=== PATIENT | female | born 1950 | race Caucasian/White ===

== ENCOUNTER 2018-05-02 11:17 | Outpatient (CLI) | payer MEDICARE, OTHER ==
--- NOTE | 2018-05-02 11:47 | RAD ---
THREE VIEWS LUMBOSACRAL SPINE: Comparison: None. History: Low back pain. FINDINGS: Three views of the lumbosacral spine shows normal height and alignment of the vertebral bodies and in tervertebral discs without fracture or subluxation. Small osteophytes are seen in the mid to lower eladio mbar spine. Mild posterior facet arthrosis is seen in the lower lumbosacral spine. Cholecystectomy cl ips are seen. Vascular calcifications are seen in the aorta. IMPRESSION: Mild degenerative changes of the lumbar spine without acute osseous abnormality. POS: [facility]
== END 2018-05-02 11:18 | disposition home or self-care (01) ==
LOC: RAD-FRANK 11:17
PROVIDERS: ATTEND Nurse Practitioner Family
DX: M54.5 Low back pain (principal); M47.896 Other spondylosis, lumbar region
CPT/HCPCS: 72100

== ENCOUNTER 2019-02-06 12:44 | Outpatient (CLI) | payer MEDICARE, OTHER ==
--- NOTE | 2019-02-06 13:14 | ULT ---
ULTRASOUND RETROPERITONEUM COMPLETE: (RENAL) HISTORY: A 68-year-old female with urinary tract infection. FINDINGS: The right kidney measures 10 x 4 x 5.5 cm. The left kidney measures 10.5 x 4.5 x 4.5 cm. Both kidne ys have normal cortical thickness and normal cortical echogenicity. There is no hydronephrosis. The urinary bladder is almost empty and therefore cannot be evaluated. IMPRESSION: 1) Normal sonographic appearance of the kidneys. 2) Empty bladder. jn [] POS: [facility]
== END 2019-02-06 12:45 | disposition home or self-care (01) ==
LOC: ULT 12:44
PROVIDERS: ATTEND Nurse Practitioner Family
DX: N39.0 Urinary tract infection, site not specified (principal); R30.0 Dysuria
CPT/HCPCS: 76770

== ENCOUNTER 2020-04-08 15:47 | Outpatient (CLI) | payer MEDICARE, OTHER ==
--- NOTE | 2020-04-08 18:10 | RAD ---
EXAM: LUMBAR SPINE THREE VIEWS: 04/08/20 HISTORY: Low back pain. COMPARISON: 05/02/18. FINDINGS: Multilevel disc osteophytosis as well as facet arthrosis. No evidence for acute fracture or dislocati on. No significant malalignment. IMPRESSION: Generalized spondylosis with some progression when compared to prior study with more narrowing at L4- L5 disc than on the prior study. No significant acute process. POS: [facility]
== END 2020-04-08 15:48 ==
LOC: RAD-FRANK 15:47
PROVIDERS: ATTEND Nurse Practitioner Family
DX: M54.5 Low back pain (principal); M47.816 Spondylosis without myelopathy or radiculopathy, lumbar region; M48.061 Spinal stenosis, lumbar region without neurogenic claudication
CPT/HCPCS: 72100

== ENCOUNTER 2021-06-22 14:25 | Outpatient (CLI) | payer MEDICARE, OTHER | END 2021-06-22 14:26 | disposition home or self-care (01) | LOC: SCSMRI 14:25 | PROVIDERS: ATTEND Surgery | DX: M47.26 Other spondylosis with radiculopathy, lumbar region (principal); M48.062 Spinal stenosis, lumbar region with neurogenic claudication | CPT/HCPCS: 72148 ==

== ENCOUNTER 2021-08-22 14:52 | Outpatient (CLI) | payer MEDICARE, OTHER ==
[2021-08-22 15:51] LABS: Hemoglobin 13.9 g/dL (12.0-15.5); Mean Corpuscular HGB CONC 32.3 g/dL (32.0-36.0); Mean Corpuscular Hemoglobin 29.4 pg (27.0-33.0); Mean Corpuscular Volume 91.3 fl (81.6-98.3); Mean Platelet Volume 10.3 fl (7.4-10.4); Platelet Count 380 10x3/uL (150-450); RBC Distribution Width 12.9 % (11.5-14.5); Red Blood Cell (RBC) Count 4.72 10x6/uL (3.90-5.03); White Blood Cell (WBC) Count 6.6 10x3/uL (3.5-10.5)
[2021-08-22 15:57] LABS: PTT 25.4 sec (22.0-33.0); Prothrombin Time 10.7 sec (9.5-12.1)
[2021-08-22 16:11] LABS: Anion Gap 14 mmol/L (10-20); BUN (Urea Nitrogen) 14 mg/dL (9.8-20.1); Calc. Creatinine Clearance 0 mL/min (70-130); Carbon Dioxide 23 mmol/L (23-31); Chloride 106 mmol/L (98-107); Glucose 114 mg/dL (80-115); Potassium 4.4 mmol/L (3.5-5.1); Sodium 139 mmol/L (136-145)
[2021-08-23 08:17] LABS: SARS-CoV-2 PCR by NAA Not Detected (NotDetected)
== END 2021-08-22 14:53 | disposition home or self-care (01) ==
LOC: LABBT 14:52
PROVIDERS: ATTEND Surgery
DX: Z01.818 Encounter for other preprocedural examination (principal); Z20.822 Contact with and (suspected) exposure to COVID-19
CPT/HCPCS: 80048; 85027; 85610; 85730; 93005; U0003; U0005; 93010

== ENCOUNTER 2021-08-26 07:49 | Observation (INO) | payer MEDICARE, OTHER ==
[2021-08-25 10:49] VITALS: BMI 28.7
[2021-08-26] MEDS ORDERED: Bacitracin Zinc Ointment 30 gm TUBE ONE (09:25)
[2021-08-26] MEDS ORDERED: Thrombin 5000 UNITS/5 ML VIAL ONE (09:25)
[2021-08-26] MEDS ORDERED: Vancomycin 1 GM/200 ML BAG ONE (09:27)
[2021-08-26] MEDS ORDERED: ceFAZolin 2 GM/DEX 5% 100 ML BAG ONE (10:17)
[2021-08-26] MEDS ORDERED: Fentanyl 250 MCG/5 ML VIAL ONE (10:17)
[2021-08-26] MEDS ORDERED: PROPOFOL 200 MG/20 ML VIAL ONE (10:33)
[2021-08-26] MEDS ORDERED: Lidocaine 1% PF 5 ML VIAL ONE (10:33)
[2021-08-26] MEDS ORDERED: Glycopyrrolate 0.2 MG/ML 5 ML SYRINGE ONE (10:33)
[2021-08-26] MEDS ORDERED: PHENYLEPHRINE-NS 100 MCG/ML 10 ML SYRINGE ONE (10:33)
[2021-08-26] MEDS ORDERED: Ondansetron PF 4 MG/2 ML Vial ONE (10:33)
[2021-08-26] MEDS ORDERED: Dexamethasone 20 MG/5 ML VIAL ONE (10:33)
[2021-08-26] MEDS ORDERED: Rocuronium Bromide 10 MG/ML (10ML VIAL) ONE (10:33)
[2021-08-26] MEDS ORDERED: Promethazine HCl 12.5 MG in Sodium Chloride 0.9% 50 ML IVPB PRN (10:38)
[2021-08-26] MEDS ORDERED: Ondansetron PF 4 MG/2 ML Vial IVP PRN (10:38)
[2021-08-26] MEDS ORDERED: Cyclobenzaprine 10 MG TAB PO PRN (10:39)
[2021-08-26] MEDS ORDERED: hydrALAZINE 20 MG/ML VIAL SLOW IVP PRN (10:39)
[2021-08-26] MEDS ORDERED: Morphine 4 MG/ML VIAL SLOW IVP PRN (12:30)
[2021-08-26] MEDS ORDERED: Promethazine HCl 25 MG/ML VIAL IVPB PRN (12:40)
[2021-08-26] MEDS ORDERED: Ondansetron HCl/PF 4 MG/2 ML Vial IVP PRN (12:40)
[2021-08-26] MEDS ORDERED: Meperidine HCl/PF 25 MG/ML VIAL SLOW IVP PRN (12:40)
[2021-08-26] MEDS ORDERED: Promethazine HCl 25 MG/ML VIAL IM PRN (12:40)
[2021-08-26] MEDS ORDERED: Fentanyl 100 MCG/2 ML VIAL ONE ×2 (12:59→13:26)
[2021-08-26] MEDS ORDERED: tiZANidine HCl 4 MG TAB ONE (13:32)
[2021-08-26] MEDS ORDERED: HYDROmorphone 2 MG/ML VIAL ONE (13:36)
[2021-08-26] MEDS ORDERED: HYDROMORPHONE 2 MG/ML SLOW IVP PRN (13:50)
[2021-08-26] MEDS ORDERED: HYDROmorphone 2 MG/ML VIAL SLOW IVP PRN (14:00)
[2021-08-26] MEDS: HYDROcodone/Acetaminophen 7.5/325 mg Tablet PO PRN ×2 (15:10→23:23)
[2021-08-26] MEDS: Sodium Chloride 0.9% 1,000 ML IV SCH (15:11)
[2021-08-26] MEDS: ceFAZolin Sodium/D5W 2 GM in Premix Bag 1 BAG IVPB SCH (17:10)
[2021-08-26] MEDS: Morphine 4 MG/ML VIAL SLOW IVP PRN ×2 (17:40→21:47)
[2021-08-26] MEDS: Cyclobenzaprine 10 MG TAB PO SCH (20:45)
[2021-08-26] MEDS: Amitriptyline HCl 10 MG TAB PO SCH (20:45)
[2021-08-26] MEDS ORDERED: Scopolamine 1.5 mg/72 hour Patch TOP SCH (21:00)
[2021-08-26] MEDS: tiZANidine HCl 4 MG TAB PO PRN (23:23)
[2021-08-27] MEDS: ceFAZolin Sodium/D5W 2 GM in Premix Bag 1 BAG IVPB SCH (01:31)
[2021-08-27] MEDS: Sodium Chloride 0.9% 1,000 ML IV SCH ×2 (03:25→15:43)
[2021-08-27] MEDS: Levothyroxine Sodium 50 MCG TAB PO SCH (05:47)
[2021-08-27] MEDS: HYDROcodone/Acetaminophen 7.5/325 mg Tablet PO PRN ×3 (06:14→17:44)
[2021-08-27] MEDS: tiZANidine HCl 4 MG TAB PO PRN ×2 (06:25→13:48)
[2021-08-27] MEDS: Estrogens, Conjugated 30 GM TUBE VAG SCH (08:21)
[2021-08-27] MEDS: Loratadine 10 MG TAB PO SCH (08:21)
[2021-08-27] MEDS: LACTINEX 1 TAB PO SCH (08:33)
[2021-08-27] MEDS: Cholecalciferol 1,000 UNITS (25 MCG) TAB PO SCH (08:33)
[2021-08-27] MEDS: Ascorbic Acid 500 mg Chewable Tablet PO SCH (08:33)
[2021-08-27] MEDS: Lisinopril 10 MG TAB PO SCH (08:33)
[2021-08-27] MEDS: Fenofibrate 48 MG TAB PO SCH (08:33)
[2021-08-27] MEDS: Acetaminophen 325 MG TAB PO PRN (08:49)
[2021-08-27] MEDS ORDERED: DILTIAZEM HCL 180 MG PO SCH (09:00)
[2021-08-27] MEDS ORDERED: Calcium Carbonate 500 MG ChewTAB PO PRN (19:55)
[2021-08-27] MEDS: Amitriptyline HCl 10 MG TAB PO SCH (20:50)
[2021-08-27] MEDS: Cyclobenzaprine 10 MG TAB PO SCH (20:50)
[2021-08-28] MEDS: HYDROcodone/Acetaminophen 7.5/325 mg Tablet PO PRN ×3 (01:52→14:12)
[2021-08-28] MEDS: tiZANidine HCl 4 MG TAB PO PRN ×3 (01:53→14:41)
[2021-08-28] MEDS: Sodium Chloride 0.9% 1,000 ML IV SCH (01:59)
[2021-08-28] MEDS: Levothyroxine Sodium 50 MCG TAB PO SCH (06:03)
[2021-08-28 07:55] VITALS: BP 113/67; TEMP 99.8
[2021-08-28] MEDS: LACTINEX 1 TAB PO SCH (07:55)
[2021-08-28] MEDS: Fenofibrate 48 MG TAB PO SCH (07:55)
[2021-08-28] MEDS: Cholecalciferol 1,000 UNITS (25 MCG) TAB PO SCH (07:55)
[2021-08-28] MEDS: Ascorbic Acid 500 mg Chewable Tablet PO SCH (07:55)
[2021-08-28] MEDS: Loratadine 10 MG TAB PO SCH (07:56)
[2021-08-28] MEDS: Estrogens, Conjugated 30 GM TUBE VAG SCH (07:56)
[2021-08-28] MEDS: Lisinopril 10 MG TAB PO SCH (07:56)
[2021-08-28] MEDS: Acetaminophen 325 MG TAB PO PRN (12:22)
[2021-08-29] MEDS ORDERED: FLU VACC QS2021-22(65YR UP)/PF 240 MCG/0.7 ML SYRINGE IM ONE (17:00)
== END 2021-08-28 16:18 | disposition home or self-care (01) ==
LOC: SDC 07:49 → SURG B 10:35
PROVIDERS: ADMIT Surgery; ATTEND Surgery
PROC: 01NB0ZZ Release Lumbar Nerve, Open Approach (ICD-10-PCS; principal; 2021-08-26)
DX: M48.062 Spinal stenosis, lumbar region with neurogenic claudication (principal); M54.16 Radiculopathy, lumbar region; Z79.899 Other long term (current) drug therapy; Z88.1 Allergy status to other antibiotic agents; Z88.2 Allergy status to sulfonamides; Z88.5 Allergy status to narcotic agent; Z88.8 Allergy status to other drugs, medicaments and biological substances
CPT/HCPCS: 63047; 63048 ×2; 76000; 96374; 96375; 96376 ×2; G0378 ×3; J1100; J1170; J2270; J2405; J2550; J2704; J3010; J3370; J7050

== ENCOUNTER 2021-08-30 19:22 | Emergency (ER) | payer MEDICARE, OTHER ==
[~2021-08-30 19:22] MED LIST: Iopamidol-370 76% 500 ML 1 ML ONE
[2021-08-30] MEDS ORDERED: Fentanyl 100 MCG/2 ML VIAL ONE (20:29)
[2021-08-30 20:46] LABS: #Eosinphils 0.3 thou/uL (0.0-0.7); #Lymphocytes 1.9 thou/uL (1.20-3.40); #Monocytes 0.7 thou/uL (0.11-0.59); %Basophils 0.2 % (0.0-1.0); %Lymphocytes 21.4 % (21.0-51.0); %Monocytes 8.1 % (0.0-10.0); %Neutrophils 67.2 % (42.0-75.0); Hemoglobin 12.4 g/dL (12.0-16.0); Mean Corpuscular HGB CONC 33.3 g/dL (32.0-36.0); Mean Corpuscular Hemoglobin 31.3 pg (27.0-31.0); Mean Corpuscular Volume 93.9 fL (78.0-98.0); Mean Platelet Volume 8.2 fL (7.4-10.4); Platelet Count 365 thou/uL (130-400); RBC Distribution Width 11.8 % (11.5-14.5); Red Blood Cell (RBC) Count 3.97 mill/uL (4.20-5.40); White Blood Cell (WBC) Count 8.9 thou/uL (4.8-10.8)
[2021-08-30 21:04] LABS: Bilirubin Negative (Negative); Blood, Urine Negative (Negative); Clarity Clear (Clear); Glucose, Urine (Dipstick) Normal (Negative); Ketone, Urine Negative (Negative); Leukocyte Negative Leu/uL (Negative); Nitrite Negative (Negative); Protein, Urine (Dipstick) Negative (Neg-Trace); Specific Gravity, Urine 1.008 (1.002-1.036); Urobilinogen Normal mg/dL (Less than 2); pH, Urine 7.5 (5.0-9.0)
[2021-08-30 21:05] LABS: ALT (SGPT) 24 U/L (8-55); AST (SGOT) 19 U/L (5-34); Albumin 3.6 g/dL (3.4-4.8); Alkaline Phosphatase 71 U/L (40-110); Anion Gap 13 mmol/L (10-20); BUN (Urea Nitrogen) 8 mg/dL (9.8-20.1); Bilirubin, Total 0.4 mg/dL (0.2-1.2); Calc. Creatinine Clearance 0 mL/min (70-130); Calcium 9.5 mg/dL (7.8-10.44); Carbon Dioxide 26 mmol/L (23-31); Chloride 104 mmol/L (98-107); Globulin 2.7 g/dL (2.4-3.5); Glucose 108 mg/dL (80-115); Potassium 3.9 mmol/L (3.5-5.1); Protein, Total 6.3 g/dL (5.8-8.1); Sodium 139 mmol/L (136-145)
== END 2021-08-30 23:01 | disposition home or self-care (01) ==
LOC: ERS 19:22
DX: R10.31 Right lower quadrant pain (principal); G89.18 Other acute postprocedural pain; I10 Essential (primary) hypertension; I48.91 Unspecified atrial fibrillation; M79.7 Fibromyalgia; K21.9 Gastro-esophageal reflux disease without esophagitis; E06.3 Autoimmune thyroiditis; H91.90 Unspecified hearing loss, unspecified ear; Z79.899 Other long term (current) drug therapy
CPT/HCPCS: 36415; 74177; 80053; 81003; 85025; 96374; J3010; Q9967

== ENCOUNTER 2023-07-25 08:52 | Day surgery (SDC) | payer MEDICARE ==
[2023-07-23 16:00] VITALS: BMI 24.4
[2023-07-23 16:25] LABS: Hematocrit 41.2 % (34.9-44.5); Hemoglobin 13.3 g/dL (12.0-15.5); Mean Corpuscular HGB CONC 32.3 g/dL (32.0-36.0); Mean Corpuscular Hemoglobin 29.8 pg (27.0-33.0); Mean Corpuscular Volume 92.2 fl (81.6-98.3); Mean Platelet Volume 10.7 fl (7.4-10.4); Platelet Count 374 10x3/uL (150-450); RBC Distribution Width 12.7 % (11.5-14.5); Red Blood Cell (RBC) Count 4.47 10x6/uL (3.90-5.03); White Blood Cell (WBC) Count 6.6 10x3/uL (3.5-10.5)
[2023-07-23 16:36] LABS: Anion Gap 13 mmol/L (10-20); BUN (Urea Nitrogen) 11 mg/dL (9.8-20.1); Calc. Creatinine Clearance 50 mL/min (70-130); Calcium 9.4 mg/dL (7.8-10.44); Carbon Dioxide 23 mmol/L (23-31); Chloride 109 mmol/L (98-107); Estimated GFR 67; Glucose 107 mg/dL (83-110); Potassium 4.6 mmol/L (3.5-5.1); Prothrombin Time 10.5 sec (9.5-12.1); Sodium 140 mmol/L (136-145)
[2023-07-25] MEDS ORDERED: Lidocaine 1% (PF) 30 ML VIAL ONE (10:08)
[2023-07-25] MEDS ORDERED: Isoproterenol 0.2 MG/1 ML AMP ONE ×2 (10:08→12:10)
[2023-07-25] MEDS ORDERED: Heparin 10,000 UNITS/ 10 ML VIAL ONE (10:08)
[2023-07-25] MEDS ORDERED: Lidocaine 1% PF 5 ML VIAL ONE (11:45)
[2023-07-25] MEDS ORDERED: PROPOFOL 200 MG/20 ML VIAL ONE (11:45)
[2023-07-25] MEDS ORDERED: Ondansetron PF 4 MG/2 ML Vial ONE (11:45)
[2023-07-25] MEDS ORDERED: Metoclopramide HCl 10 MG/2 ML VIAL ONE (11:45)
[2023-07-25] MEDS ORDERED: Rocuronium Bromide 10 MG/ML (10ML VIAL) ONE (11:45)
[2023-07-25] MEDS ORDERED: SUGAMMADEX SODIUM 200 MG/2 ML VIAL ONE (13:23)
[2023-07-25] MEDS ORDERED: fentaNYL 50 mcg/mL 1 mL Vial ONE (13:44)
== END 2023-07-25 16:56 | disposition home or self-care (01) ==
LOC: SDC 08:52
PROVIDERS: ATTEND Internal Medicine Cardiovascular Disease
PROC: 4A027FZ Measurement of Cardiac Rhythm, Via Natural or Artificial Opening (ICD-10-PCS; principal; 2023-07-25)
PROC: 02573ZK Destruction of Left Atrial Appendage, Percutaneous Approach (ICD-10-PCS; 2023-07-25)
DX: I47.1 Supraventricular tachycardia (principal); Z88.1 Allergy status to other antibiotic agents; Z88.5 Allergy status to narcotic agent; Z88.8 Allergy status to other drugs, medicaments and biological substances; Z91.011 Allergy to milk products
CPT/HCPCS: 80048; 85027; 85610; 85730; 93005; 93613; 93621; 93623; 93653; C1730; C1732; C1760; C1769; C1894; C2630; J3010; J1644; J2001; J2405; J2704; J2765

== ENCOUNTER 2023-10-11 15:48 | Emergency (ER) | payer MEDICARE ==
[2023-10-11 16:55] LABS: #Eosinphils 0.1 thou/uL (0.0-0.7); #Monocytes 0.6 thou/uL (0.11-0.59); #Neutrophils 4.6 thou/uL (1.40-6.50); %Basophils 0.4 % (0.0-1.0); %Eosinophils 1.8 % (0.0-10.0); %Lymphocytes 25.5 % (21.0-51.0); %Monocytes 8.8 % (0.0-10.0); %Neutrophils 63.5 % (42.0-75.0); Hematocrit 41.7 % (36.0-47.0); Hemoglobin 13.7 g/dL (12.0-16.0); Mean Corpuscular HGB CONC 32.9 g/dL (32.0-36.0); Mean Corpuscular Hemoglobin 30.1 pg (27.0-31.0); Mean Corpuscular Volume 91.6 fl (78.0-98.0); Mean Platelet Volume 10.7 fL (7.4-10.4); Platelet Count 341 10x3/uL (130-400); RBC Distribution Width 12.7 % (11.5-14.5); Red Blood Cell (RBC) Count 4.55 mill/uL (4.20-5.40); White Blood Cell (WBC) Count 7.3 10x3/uL (4.8-10.8)
[2023-10-11 17:20] LABS: ALT (SGPT) 10 U/L (8-55); AST (SGOT) 21 U/L (5-34); Albumin 4.2 g/dL (3.4-4.8); Alkaline Phosphatase 70 U/L (40-110); Anion Gap 11 mmol/L (10-20); BUN (Urea Nitrogen) 13 mg/dL (9.8-20.1); Bilirubin, Total 0.4 mg/dL (0.2-1.2); Calc. Creatinine Clearance 0 mL/min (70-130); Calcium 10.4 mg/dL (7.8-10.44); Carbon Dioxide 22 mmol/L (23-31); Chloride 109 mmol/L (98-107); Estimated GFR 55; Glucose 91 mg/dL (83-110); Potassium 3.7 mmol/L (3.5-5.1); Protein, Total 7.2 g/dL (5.8-8.1); Sodium 138 mmol/L (136-145)
[2023-10-11 17:23] LABS: Troponin I Less than 0.010 ng/mL (< 0.028)
[2023-10-11] MEDS ORDERED: Ondansetron PF 4 MG/2 ML Vial ONE (17:27)
[2023-10-11] MEDS ORDERED: Labetalol HCl 100 MG/20 ML VIAL ONE (17:28)
[2023-10-11] MEDS ORDERED: Acetaminophen 500 MG TAB ONE (17:54)
== END 2023-10-11 18:20 | disposition home or self-care (01) ==
LOC: ERS 15:48
DX: I10 Essential (primary) hypertension (principal); Z79.899 Other long term (current) drug therapy
CPT/HCPCS: 36415; 71045; 80053; 84484; 85025; 93005; 96374; 96375; J2405